=== PATIENT | female | born 1955 | race Caucasian/White ===

== ENCOUNTER 2016-11-04 11:38 | Day surgery (SDC) | payer OTHER ==
[~2016-11-04] VITALS: Ht 162.6 cm; Wt 122.5 kg
[~2016-11-04 11:38] MED LIST: ASPI-973 PO; EXEN10PE SUBQ; FEXO-15 PO; FUR20 PO; GLUC-123 PO; IBUP800T28 PO; INSU100V7 SUBQ; KEP500TA PO; LISI-571 PO; LOPE1TAB13 PO; METO25TA6 PO; OMEP20TA24 PO; PARO10TA24 PO; POTA10TA12 PO; PSYL798P2 PO; SIMV80TA4 PO; Sodium Chloride LOK Flush 10 mL Syringe IV PRN; fentaNYL-PF 50 mCg/mL 2 mL Inj IVPUSH PRN
[2016-11-04 12:33] VITALS: BP 143/71; PULSE 62; RESP 16; O2SAT 97
[2016-11-04] MEDS ORDERED: INSU100C8 SUBQ (12:38)
[2016-11-04] MEDS: 0.9% Sodium Chloride 1,000 ML IV PRN ×3 (12:50→13:37)
[2016-11-04 13:50] VITALS: BP 168/90; PULSE 67; RESP 16; O2SAT 92
--- NOTE | 2016-11-04 13:59 | PCM.ENDCOL ---
Colonoscopy Date of Service: Nov 04, 2016 Physician Javier Ramachandran MD Indication for Procedure screening colon cancer Post Procedure Dx & Findings: polyp hemorrhoid and diverticuli Procedure Colonoscopy prep adequate withdrawal 18 min PROCEDURE: After unremarkable rectal examination, Olympus video colonoscope was inserted into patient's anal canal was advanced to cecum. Landmarks were identified including the ileocecal valve and appendiceal orifice. Scope was withdrawn systematically. In the cecum to the ascending colon and to some extent in the left side of the colon, there were several submillimeter erosions. Sampling biopsy obtained using cold forceps. Otherwise, the mucosa of the cecum, ascending, transverse, descending, sigmoid, rectal mucosa lined with whitish, pink, smooth, glistening , normal-appearing mucosa, normal fine branching, underlying vascularity, normal haustra. The patient tolerated procedure and was transported to observation area. In the ascending colon, there were 4 polyps sizes between 3- 5 mm. These were all resected completely using cold snare. In the distal descending colon there were 3 polyps which were about 3-4 mm in size. These are also all resected completely using cold snare. In the ascending colon, there were several small diverticuli. In the rectum retroflexion was done which showed mild hemorrhoids and anal canal was inspected carefully hemorrhoids noted. Impression Colonic erosions status post biopsy. Patient is taking ibuprofen. Polyps status post complete removal Diverticuli Hemorrhoids Recommendation If the polyps come back as adenomatous, repeat colonoscopy in 1-2 years. Diverticular diet. Presedation Assessment Risks and Benefits Informed consent was obtained from the patient after all risks and benefits including but not limited to drug reaction, infection, pain, bleeding, perforation, as well as alternatives were discussed. Patient monitoring Continuous pulse oximetry, cardiac monitoring, blood pressure monitoring, IV access, and oxygen at 2L per nasal cannula. Periprocedural Fentanyl: Fentanyl 150mcg Incrementally Midazolam: Midazolam 5mg Incrementally Complications There were no periprocedural complications identified. Post Procedure Plan Post Procedure Recommendations 1. Restrict activities today. 2. Resume normal activities in the morning. 3. Resume medications. 4. Patient informed of normal post procedure side effects as bloating, drowsiness, blood streaking in the stool. 5. average risk CRCS. If colon polyps come back as: -Hyperplastic- can repeat colonoscopy in 10 years -Tubular adenoma- repeat colonoscopy in 5 years -Tubulovillous/villous adenoma- repeat colonoscopy in 3 years -If any dysplasia- return to clinic as soon as possible 6. Please don't hesitate to call me with any questions. Javier Ramachandran MD Nov 04, 2016 13:59
[2016-11-04 14:00] VITALS: BP 157/77; PULSE 75; RESP 16; O2SAT 96
[2016-11-04 14:10] VITALS: BP 157/89; PULSE 67; RESP 16; O2SAT 94
--- NOTE | 2016-11-07 10:57 | PATH ---
SURGICAL PATHOLOGY Attending Physician:Javier Ramachandran M.D. CASE STATUS: Signed Out PATIENT NAME: BRYNN REGAN PID: [id number] : 1955 DATE COLLECTED:11/04/2016 00:00 SPECIMEN: 1: Colon, Biopsy 2: Colon, Biopsy 3: Colon, Biopsy CLINICAL HISTORY: A: ASCENDING COLON POLYPS X4 B: ASCENDING COLON EROSION BIOPSY C: DESCENDING COLON POLYP X3 FINAL DIAGNOSIS: 1.ASCENDING COLON POLYPS: BENIGN COLONIC MUCOSA WITH SUPERFICIAL MUCOSAL HYPERPLASIA. NEGATIVE FOR DYSPLASIA AND MALIGNANCY. MULTIPLE MICROSCOPIC LEVELS EXAMINED.2.ASCENDING COLON EROSION BIOPSY: BENIGN COLONIC MUCOSA WITH EROSION. NEGATIVE FOR GRANULOMAS OR PARASITES. NEGATIVE FOR DYSPLASIA AND MALIGNANCY. 3.DESCENDING COLON POLYPS: HYPERPLASTIC POLYPS, 2. FRAGMENT OF VEGETABLE MATERIAL. MULTIPLE MICROSCOPIC LEVELS EXAMINED. ICD10 CODE K63.5 GROSS DESCRIPTION: The specimen is received in three formalin filled containers labeled with the patient's name. 1). The specimen is sublabeled "ascending colon polyps X4" and consists of 3 portions of tissue and friable material which aggregate to 0.5 x 0.5 x 0.3 CM. The specimen is entirely submitted in cassette 1A. 2). The specimen is sublabeled "ascending colon erosion" and consists of 2 portions of tissue which aggregate to 0.3 x 0.3 x 0.2 CM. The specimen is entirely submitted in cassette 2A. 3). The specimen is sublabeled "descending colon polyp X3" and consists of 2 portions of tissue and possible debris which aggregate to 0.4 x 0.3 x 0.3 CM. The specimen is entirely submitted in cassette 3A. 11/05/2016 [facility] MICRO DESCRIPTION: See diagnosis. ICD-9 CODES: CPT CODES: 1: 20790 2: 72538 3: 58755 Electronically Signed Out Faith Navarro MD [facility], [place] [address] Technical component performed at [facility], [facility] [address], [place], [address]
== END 2016-11-04 23:59 | disposition home or self-care (01) ==
LOC: END 11:38
PROVIDERS: ATTEND Internal Medicine
DX: Z12.11 Encounter for screening for malignant neoplasm of colon (principal); D12.2 Benign neoplasm of ascending colon; D12.4 Benign neoplasm of descending colon; K57.30 Diverticulosis of large intestine without perforation or abscess without bleeding; K64.8 Other hemorrhoids; Z86.010 Personal history of colon polyps; E11.9 Type 2 diabetes mellitus without complications; I25.10 Atherosclerotic heart disease of native coronary artery without angina pectoris; F32.9 Major depressive disorder, single episode, unspecified; E78.5 Hyperlipidemia, unspecified; E66.9 Obesity, unspecified; Z68.42 Body mass index [BMI] 45.0-49.9, adult; Z79.82 Long term (current) use of aspirin; Z79.4 Long term (current) use of insulin
CPT/HCPCS: 45380; 45385; J2250; J7030

== ENCOUNTER 2016-12-14 05:15 | Emergency (ER) | payer OTHER ==
[~2016-12-14] VITALS: Ht 162.6 cm; Wt 122.7 kg
[~2016-12-14 05:15] MED LIST changes: -FUR20 PO; +INSU100C8 SUBQ; -LOPE1TAB13 PO; -PSYL798P2 PO; -Sodium Chloride LOK Flush 10 mL Syringe IV PRN; -fentaNYL-PF 50 mCg/mL 2 mL Inj IVPUSH PRN
[2016-12-14 05:19] VITALS: BP 131/71; PULSE 64; RESP 16; O2SAT 98
[2016-12-14] MEDS ORDERED: NIAC500T21 PO (05:43)
[2016-12-14] MEDS ORDERED: NIAC500C3 PO (05:43)
[2016-12-14] MEDS ORDERED: CETI10CA PO (05:43)
[2016-12-14] MEDS ORDERED: INSU100V7 SUBQ (05:43)
--- NOTE | 2016-12-14 05:57 | ED.REPORT ---
HPI-Trauma Multiple Date of Service Dec 14, 2016 ED Provider: Jovani Price MD The patient is a 61 year old female with history of a known seizure disorder on Keppra who presents to the emergency department complaining of knee pain that began after she had a ground level fall last night around 1730. The patient states she got up out of her car and fell onto her right elbow and right knee. She is unsure if she had a seizure but reports that these symptoms are similar to previous seizures. She did not hit her head. At this time her only complaint is right knee pain. She denies head pain, neck pain, back pain, abdominal pain, numbness, tingling or weakness. She is not on any blood thinners. Nursing Notes Stated Complaint: RT KNEE PAIN Chief Complaint: Multiple Trauma/Fall Nursing Notes Reviewed: Yes Allergies: Coded Allergies: atorvastatin (Verified Allergy, Intermediate, MUSCLE ACHES, 11/01/16) citalopram (Verified Allergy, Intermediate, HIVES, NIGHTMARES, 11/01/16) rosuvastatin (Verified Allergy, Intermediate, MYALGIA, 11/01/16) acetaminophen (Verified Allergy, Unknown, ITCH, 11/01/16) adhesive (Verified Allergy, Unknown, SKIN BLISTER/PEELS, 11/01/16) codeine (Verified Allergy, Unknown, ITCH, 11/01/16) latex (Verified Allergy, Unknown, RASH, 11/01/16) oxycodone HCl (Verified Allergy, Unknown, ITCH, 11/01/16) Uncoded Allergies: PCN (Allergy, Unknown, COMA, 11/01/16) Scheduled Aspirin (Aspirin) 81 Mg Tablet 81 MG PO DAILY Cetirizine HCl (Zyrtec) 10 Mg Capsule 10 MG PO DAILY Exenatide Inj (Byetta Inj) 10 Mcg/0.04 Ml Pen.injctr 10 MCG SUBQ BID Fexofenadine (Crystal Allergy) 60 Mg Tablet 60 MG PO BID Gluc/Gregg-MSM#2/C/D3/Gonzalez/Born (Vcljzradrf-Oaihoxbcdyy-YRT Tab) 1 Each Tablet 1 EACH PO DAILY Insulin Aspart (NovoLOG U100 Insulin Vial) 100 U/Ml U 2-20 UNIT SUBQ TID Insulin Glargine (Lantus U100 Insulin Vial) 100 Unit/Ml Vial 30 UNIT SUBQ AM Insulin Glargine (Lantus U100 Insulin Vial) 100 Unit/Ml Vial 45 UNIT SUBQ HS Levetiracetam (Keppra) 500 Mg Tablet 1,000 MG PO BID Lisinopril (Lisinopril) 5 Mg Tablet 5 MG PO DAILY Metoprolol Tartrate (Metoprolol Tartrate) 25 Mg Tablet 25 MG PO BID Niacin (Niacin) 500 Mg Capsule.er 500 MG PO BID Niacinamide (Niacin) 500 Mg Tablet 500 MG PO BID Omeprazole Magnesium (Prilosec Otc) 20 Mg Tablet.dr 20 MG PO DAILY Paroxetine (Paxil) 10 Mg Tab 10 MG PO HS Potassium Chloride ER (Potassium Chloride ER) 10 Meq Tablet 10 MEQ PO DAILY TAKE WITH FOOD Simvastatin (Simvastatin) 80 Mg Tablet 80 MG PO HS General Time Seen by Provider: 05:57 Chief Complaint Extremity pain/injury Hx Obtained From: Patient Arrived By: Walk-in Onset Occurred: 9 - 12 hours ago Symptom Duration: Since onset Progression Since Onset: Constant Location: : Elbow right: Knee right Quality: Painful Severity: Current: Moderate Severity: Maximum: Moderate Recent Healthcare: No recent doctor visit, No recent hospitalization Similar Sx Previous: Yes Past Medical History Past Medical History Seizure disorder Coronary artery disease Diabetes mellitus Past Surgical History Cardiac stents Family History Noncontributory Smoking History Former Smoker Social History Other Social History: Good social support, , Local resident Ambulatory Status Independent Review of Systems Respiratory: Denies: Shortness of breath Cardiovascular: Denies: Chest pain GI: Denies: Abdominal pain Musculoskeletal: Reports: Joint pain, Denies: Back pain, Neck pain Neurologic: Reports: Change LOC, Seizure, Denies: Focal weakness, Headache, Numbness Complete sys rev & neg: except as marked. Physical Exam Initial Vital Signs Vital Signs (First) Date Time Temp Pulse Resp B/P Pulse Ox O2 Delivery O2 Flow Rate FiO2 12/14/16 05:19 36.6 64 16 131/71 98 Room Air Initial VS: Reviewed ENT: Mucous membranes moist, Conjunctiva normal, No scleral icterus Extremities: Vascular intact, Neuro intact Skin: Warm, Dry, No cyanosis Psychiatric: Mood/affect normal, Behavior normal, Normal thought content General/Constitutional: Awake, Alert, Cooperative Head / Eyes: Atraumatic, Normocephalic, PERRL, EOMI Neck: Atraumatic, Supple, Full range of motion, No swelling, Non-tender, No midline vertebral tend, No masses, No crepitus, No JVD, No tracheal deviation Respiratory / Chest: Atraumatic, Breath sounds NL, Breath sounds = bilat, No respiratory distress, No rales, No rhonchi, No wheezing, No stridor, No chest tenderness, No chest wall deformity, No crepitus Cardiovascular: Heart rate NL, Regular rhythm, Heart sounds NL, Cap refill not delayed, Peripheral circulation NL Abdomen: Atraumatic, Soft, Non-tender, No guarding, No rebound, No distention Back: Atraumatic, Inspection NL, Full range of motion, Painless range of motion , Non-tender, No midline vertebral tend No deformity. Neurologic: Oriented X3, Speech NL, No motor deficits, No sensory deficits, Cerebellar NL, Memory NL Upper Extremity / MS: Neurologic intact, Vascular intact Superficial abrasion overlying the right elbow. FROM of right elbow. Neurovascular intact. Lower Extremity / Pelvis / MS: Neurologic intact, Vascular intact FROM of right hip. There is a 6x6 cm superficial abrasion just inferior to the right patella. She has tenderness about the medial aspect of the right knee. Her lower extremities are otherwise unremarkable. Interpretation & Diagnostics X-Ray Interpretation X-Ray Ordered: Knee right Interpretation / Wet Read by: Wet read ED physician Interpretation: Normal exam, No fracture/dislocation Re-Eval/Medical Decision Med Decision/Clinical Course The patient is a 61-year-old female with a history of seizure disorder, on [facility] who presents with right knee pain after a ground-level fall that she sustained yesterday that she believes is secondary to one of her typical seizure events. Here in the emergency department the patient is afebrile with stable vital signs and in no apparent distress. Examination reveals abrasion overlying the right elbow with full range of motion and no evidence of fracture. There is additional abrasion overlying the right knee. She reports pain with weightbearing on her right knee but there is no obvious clinical evidence of fracture. Plain films were obtained of the right knee demonstrated no acute bony abnormality. Attending radiologist reads are pending at this time. Patient was treated with ibuprofen and an ice pack. We provided Kailash bandage and crutches. She will follow up with her primary care physician in the next week. She was discharged in stable condition. Follow-up and return precautions were given in detail and she verbalized understanding and agreement with plan. There is no evidence of trauma to her face or scalp. She denied hitting her head when she fell. Fall secondary to atypical seizure event and I do not feel that additional syncope workup is indicated at this time. Source of Hx: Old records Re-Evaluation/Progress : Time of Eval: 07:17 Re-Evaluation/Progress Note: Rechecked the patient. Discussed results, diagnosis, and plan for discharge. All questions were addressed. Counseled Regarding: Diagnosis, Need for follow-up, When/why to return to ED Discharge & Departure Impression: Primary Impression: Fall Encounter type: initial encounter Qualified Code: W19.XXXA - Unspecified fall, initial encounter Additional Impressions: Contusion of right knee Encounter type: initial encounter Qualified Code: S80.01XA - Contusion of right knee, initial encounter History of seizure disorder Disposition: Home Discharge Condition All VS Reviewed: Yes Condition: Stable Additional Instructions: Thank you for seeking care at the emergency room. Our primary goal today in the ED was to evaluate you for any life-threatening conditions. Your evaluation was reassuring. You can take Ibuprofen as needed for pain. You can also try applying ice if this helps. Use the crutches as needed and bear weight as tolerated. You should follow-up with your primary doctor in the next week. You should return to the ED immediately if you develop increased pain, swelling or redness, fevers, chills, vomiting, shortness of breath, chest pain, lightheadedness, weakness or any other concerning signs or symptoms. Thank you for letting us partake in your care today. Referrals: Sharmila Pang MD (PCP) Scribe Attestation Portions of this note were transcribed by Jaky Torres. I, Dr. Price personally performed the history, physical exam and medical decision-making; I reviewed and confirmed the accuracy of the information in the transcribed note. Signed by: Miguel Musa, 12/14/2016 and 07. copies to: Sharmila Pang MD, Beck O MD Dec 14, 2016 05:57 Jaky Torres Dec 14, 2016 06:06
--- NOTE | 2016-12-14 08:25 | DRSVH ---
PROCEDURE: X-RAY RIGHT KNEE, THREE VIEWS ([id number]) INDICATIONS: trauma, painful to wb TECHNIQUE: 3 views of the knee were acquired. COMPARISON: None. FINDINGS: Bones: No fractures or dislocations. No suspicious bony lesions. Small calcifications are present suggestive of intra-articular loose bodies. Soft tissues: No joint effusion. No suspicious soft tissue calcifications. IMPRESSION: No visualized acute fracture or dislocation. However, if clinical concern and/or pain pe rsist, short interval imaging followup in 7-10 days is recommended, as occult injury cannot be defini tively excluded. Dictated by: Jeanine Looney M.D. on 12/14/2016 at 8:22 Approved by: Jeanine Looney M.D. on 12/14/2016 at 8:23
== END 2016-12-14 07:29 | disposition home or self-care (01) ==
LOC: SED 05:15
DX: S80.01XA Contusion of right knee, initial encounter (principal); W19.XXXA Unspecified fall, initial encounter; Y93.89 Activity, other specified; Y92.9 Unspecified place or not applicable; Y99.8 Other external cause status; E11.9 Type 2 diabetes mellitus without complications; I25.10 Atherosclerotic heart disease of native coronary artery without angina pectoris; Z86.69 Personal history of other diseases of the nervous system and sense organs; Z79.82 Long term (current) use of aspirin; Z79.4 Long term (current) use of insulin; Z87.891 Personal history of nicotine dependence; Z88.5 Allergy status to narcotic agent; Z88.8 Allergy status to other drugs, medicaments and biological substances; Z91.040 Latex allergy status